=== PATIENT | male | born 1995 | race Caucasian/White ===

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

== ENCOUNTER 2017-02-28 01:30 | Emergency (ER) | payer OTHER ==
[2017-02-28 01:34] VITALS: TEMP 97.9
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
[2017-02-28] MEDS ORDERED: IBUPROFEN 600 MG TAB PO ONE (03:37)
[2017-02-28 03:49] VITALS: BP 129/66; PULSE 71; RESP 16; O2SAT 96
== END 2017-02-28 04:03 | disposition home or self-care (01) ==
DX: S02.40DA Maxillary fracture, left side, initial encounter for closed fracture (principal); S02.5XXA Fracture of tooth (traumatic), initial encounter for closed fracture; S00.03XA Contusion of scalp, initial encounter; Y08.89XA Assault by other specified means, initial encounter